=== PATIENT | male | born 1995 | race American Indian/Alaskan Native ===

== ENCOUNTER 2017-08-27 18:07 | Emergency (ER) | payer SELFPAY ==
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
[2017-08-27] MEDS ORDERED: MOTRIN PO ONE (21:55)
[2017-08-27] MEDS ORDERED: TRIPLE ANTIBIOTIC TP ONE (21:56)
[2017-08-27 23:53] VITALS: BP 124/79
== END 2017-08-27 22:05 | disposition home or self-care (01) ==
LOC: ED 18:07
DX: S83.91XA Sprain of unspecified site of right knee, initial encounter (principal); S20.412A Abrasion of left back wall of thorax, initial encounter; F17.200 Nicotine dependence, unspecified, uncomplicated; Y04.0XXA Assault by unarmed brawl or fight, initial encounter; Y93.89 Activity, other specified; Y92.488 Other paved roadways as the place of occurrence of the external cause; Y99.8 Other external cause status
CPT/HCPCS: 99283; A6250

== ENCOUNTER 2017-09-15 11:40 | Emergency (ER) | payer SELFPAY ==
[2017-09-15 11:55] VITALS: BP 118/57
--- NOTE | 2017-09-15 14:59 | Emergency Department Report ---
Chief Complaint: Extremity Injury, Lower Stated Complaint: RIGHT KNEE PAIN Time Seen by Provider: 09/15/17 14:38 - HPI History of Present Illness: Patient is a 21-year-old male who states he both knees with someone else while playing basketball and he has some soreness. 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 Discussed outpatient strategies with this patient. - ROS Review of Systems: Review of systems are negative except for those in HPI - Exam Vital Signs: Vital Signs 09/15/17 11:53 Temperature 97.1 F L Pulse Rate 83 Respiratory 16 Rate Blood Pressure 118/57 O2 Sat by Pulse 97 Oximetry Physical Exam: Focused physical exam patient's right knee has some medial tenderness for range of motion and no deformity no redness no swelling no laceration. No anterior drawer sign. MSE screening note: Focused history and physical exam performed. Due to findings the following was ordered: No laboratory radiology studies have been performed at this time ED Medical Decision Making - Medical Decision Making Outpatient strategies have been discussed with the patient including rice as well as [id number] pain management ED Disposition for MSE Clinical Impression: Knee contusion Disposition: Z-07 MED SCREENING EXAM-LEFT Is pt being admited?: No Does the pt Need Aspirin: No Condition: Fair Instructions: Knee Pain (ED) Referrals: PUMA MALONE MD [Primary Care Provider] - 3-5 Days Forms: Work/School Excuse Out Patient
== END 2017-09-15 15:08 | disposition left against medical advice (07) ==
LOC: ED 11:40
DX: S80.01XA Contusion of right knee, initial encounter (principal); Z53.21 Procedure and treatment not carried out due to patient leaving prior to being seen by health care provider; W51.XXXA Accidental striking against or bumped into by another person, initial encounter; Y93.67 Activity, basketball; Y99.8 Other external cause status; Y92.89 Other specified places as the place of occurrence of the external cause
CPT/HCPCS: 99282

== ENCOUNTER 2019-07-03 19:58 | Emergency (ER) | payer SELFPAY ==
[2019-07-03 21:13] VITALS: BP 103/47
--- NOTE | 2019-07-03 21:17 | Event Note ---
ED Screening Note Date of service: 07/03/19 Time: 21:15 ED Screening Note: 23 y o male presents with spider bite to his left knee cc of swelling and pain worse with standing This initial assessment/diagnostic orders/clinical plan/treatment(s) is/are subject to change based on patients health status, clinical progression and re- assessment by fellow clinical providers in the ED. Further treatment and workup at subsequent clinical providers discretion. Patient/guardian urged not to elope from the ED as their condition may be serious if not clinically assessed and managed. Initial orders include: acc eval [facility]
--- NOTE | 2019-07-04 01:10 | Emergency Department Report ---
Chief Complaint: Skin/Abscess/Foreign Body Stated Complaint: SPIDER BITE Time Seen by Provider: 07/03/19 21:15 - HPI History of Present Illness: She presents to the emergency department with complaint of possible spider bite to his right upper leg. Patient states 30 minutes before coming to the ED and felt something falling on his leg in mental bite. - ROS Review of Systems: 11 point review of systems negative - Exam Vital Signs: Vital Signs 07/03/19 21:10 Temperature 98.5 F Pulse Rate 79 Respiratory 18 Rate Blood Pressure 103/47 O2 Sat by Pulse 95 Oximetry Physical Exam: On physical exam there are no findings of an insect bite to the right posterior upper and leg. There is also no signs of cellulitis MSE screening note: Focused history and physical exam performed. Due to findings the following was ordered: ED Disposition for MSE Clinical Impression: Well adult exam Disposition: MED SCREENING EXAM-LEFT Is pt being admited?: No Does the pt Need Aspirin: No Condition: Stable Referrals: PRIMARY CARE [Primary Care Provider] - 3-5 Days [facility] [Provider Group] - 3-5 Days [facility] [Provider Group] - 3-5 Days Time of Disposition: :09
== END 2019-07-04 02:40 | disposition left against medical advice (07) ==
LOC: ED 19:58
DX: S71.151A Open bite, right thigh, initial encounter (principal); W57.XXXA Bitten or stung by nonvenomous insect and other nonvenomous arthropods, initial encounter; Y93.89 Activity, other specified; Y92.89 Other specified places as the place of occurrence of the external cause; Y99.8 Other external cause status
CPT/HCPCS: 99282